=== PATIENT | male | born 1985 | race African-American/Black ===

== ENCOUNTER 2017-06-07 21:17 | Emergency (ER) | payer OTHER ==
[~2017-06-07] VITALS: Ht 175.3 cm; Wt 96.8 kg
[2017-06-07 21:17] VITALS: BP 157/91
--- NOTE | 2017-06-08 13:17 | REP ---
Right elbow for views : There is no fracture or dislocation. Mineralization and joint spaces are normal. There are no calcifications or foreign bodies. Impression: Negative right elbow . Signed by Cornelio Arndt MD 06/08/2017 07:38 A
--- NOTE | 2017-06-08 13:17 | REP ---
Right humerus two views : There is no fracture or dislocation. Mineralization and joint spaces are normal. There are no calcifications or foreign bodies. Impression: Negative right humerus . Signed by Cornelio Arndt MD 06/08/2017 07:38 A
== END 2017-06-07 23:01 | disposition home or self-care (01) ==
LOC: M ED 21:17
DX: M79.601 Pain in right arm (principal)

== ENCOUNTER 2023-08-29 15:05 | Emergency (ER) | payer OTHER ==
[~2023-08-29] VITALS: Ht 175.3 cm; Wt 95.0 kg
[2023-08-29] MEDS ORDERED: BOOSTRIX VACCINE (TETANUS/DIPHTH/ACEL. PERTUSSIS) 0.5ML SYR IM ONE (20:00)
[2023-08-29] MEDS ORDERED: DERMABOND TOPICAL SKIN ADHESIVE TOP ONE (20:00)
[2023-08-29 20:12] VITALS: BP 128/88; TEMP 98.7; O2SAT 100
== END 2023-08-29 20:15 | disposition home or self-care (01) ==
LOC: M ED 15:05
DX: S01.112A Laceration without foreign body of left eyelid and periocular area, initial encounter (principal); W22.8XXA Striking against or struck by other objects, initial encounter; F17.200 Nicotine dependence, unspecified, uncomplicated; Y92.9 Unspecified place or not applicable; Y93.89 Activity, other specified; Y99.0 Civilian activity done for income or pay; Z23 Encounter for immunization

== ENCOUNTER → 2024-02-12 | Outpatient (REF) ==
[2024-02-12 18:05] LABS: BILIRUBIN,TOTAL 0.3 MG/DL (0.3-1.2)
== END ==
LOC: M PLAIMG 14:26
PROVIDERS: ATTEND Nurse Practitioner Family
DX: R52 Pain, unspecified (principal)

== ENCOUNTER 2025-06-27 17:32 | Emergency (ER) | payer OTHER, SELFPAY ==
[~2025-06-27] VITALS: Ht 175.3 cm; Wt 90.4 kg
[2025-06-27 17:35] VITALS: BP 130/80; TEMP 98.5; O2SAT 100
== END 2025-06-27 18:25 | disposition left against medical advice (07) ==
LOC: M ED 17:32
DX: Z53.21 Procedure and treatment not carried out due to patient leaving prior to being seen by health care provider (principal)

== ENCOUNTER 2025-08-07 07:55 | Emergency (ER) | payer OTHER, SELFPAY ==
[~2025-08-07] VITALS: Ht 175.3 cm; Wt 90.4 kg
[2025-08-07 08:34] LABS: BASO # 0.0 10^3/uL (0.0-0.2); BASO % 0.6 % (0.0-1.0); EOS # 0.2 10^3/uL (0.0-0.5); EOS % 2.5 % (0.0-3.0); LYMPH # 2.9 10^3/uL (1.5-5.0); LYMPH % 45.4 % (24.0-44.0); MONO # 0.5 10^3/uL (0.0-0.8); MONO % 7.3 % (2.0-8.0); NEUTROPHILS # 2.8 10^3/uL (1.5-8.5); NEUTROPHILS % 44.0 % (36.0-66.0); PLATELET COUNT, AUTOMATED 298 10^3/uL (150-450)
[2025-08-07 09:13] LABS: ALT/SGPT 15 U/L (7.0-40); AST/SGOT 18 U/L (<34); CALCIUM LEVEL 9.2 MG/DL (8.5-10.1); CARBON DIOXIDE LEVEL 26 MMOL/L (20-31); CHLORIDE LEVEL 107 MMOL/L (98-107); CREATININE FOR GFR 1.04 MG/DL (0.70-1.30); GLOMERULAR FILTRATION RATE > 90.0 (>60); POTASSIUM SERUM 4.5 MMOL/L (3.5-5.1); SODIUM LEVEL 143 MMOL/L (136-145)
[2025-08-07] MEDS: KETOROLAC 30 MG/ML 1 ML VIAL IV ONE (09:47)
[2025-08-07] MEDS: SUCRALFATE 1 GM TAB PO ONE (09:47)
[2025-08-07] MEDS: FAMOTIDINE 20 MG/2 ML VIAL IVP ONE (09:47)
[2025-08-07] MEDS: NS (Normal Saline) 0.9% 1,000 ML IV ONE (09:48)
[2025-08-07 12:30] VITALS: TEMP 97.3
[2025-08-07] MEDS ORDERED: ONDA-282 PO (13:07)
[2025-08-07 13:15] VITALS: BP 148/71; O2SAT 99
== END 2025-08-07 13:29 | disposition home or self-care (01) ==
LOC: M ED 07:55
DX: K80.10 Calculus of gallbladder with chronic cholecystitis without obstruction (principal); R00.1 Bradycardia, unspecified; R16.0 Hepatomegaly, not elsewhere classified; K76.0 Fatty (change of) liver, not elsewhere classified
CPT/HCPCS: 71046; 74176; 76705; 80053; 82248; 83605; 83690; 85025; 93005; 93041; 96361; 96374; 96375; 99285; J1308; J1885